=== PATIENT | male | born 1950 | race Caucasian/White ===

== ENCOUNTER → 2022-01-11 14:39 | Outpatient (CLI) | payer MEDICARE, SELFPAY ==
--- NOTE | 2022-01-11 | DI.ECHO.S_ITS ---
[place] [facility] +---------+ : : [address] : [address] : : : : [id number] : : : : Phone: [phone]---------+ Echocardiogram Report + + :Name: CONSTANTIN KAPLAN Study Date: 01/11/2022 Height: 66 in : :[facility] ReadingLocation: Weight: 300 lb : : Gender: Male BSA: 2.4 m2 : :: 1950 Age: 71 yrs BP: 155/78 mmHg: :Reason For Study: SHORTNESS OF BREATH : :Ordering Physician: OSITO, : :DONNIE Performed By: Laya Acharya : :Referring: DONNIE MCNEILL : + + Interpretation Summary 1) Normal left ventricular thickness, size, wall motion, and systolic function (EF 55-60%). 2) The right ventricle grossly appears normal in size with probable normal systolic function. 3) No significant valvular abnormalities. 4) Pulmonary artery pressures cannot be estimated because of the lack of a measurable TR jet velocity. 5) No prior Echo available for comparison. Procedure: A two-dimensional transthoracic echocardiogram with color flow and Doppler was performed. The study quality was technically difficult. A contrast injection of Definity was performed to improve assessment of LV function. There is no prior echocardiogram noted for this patient. The patient was in sinus rhythm with heart rates between 75-90 bpm during the exam. Left Ventricle: The left ventricle is normal in size and wall thickness. The ejection fraction is estimated to be 55-60%. Left ventricular systolic function appears normal without focal wall motion abnormalities. Right Ventricle: The right ventricle is not well visualized. The right ventricle grossly appears normal in size with probable normal systolic function. Atria: The left atrial size is normal. Right atrium not well visualized secondary to technical limitations. There is no Doppler evidence for an interatrial shunt. Mitral Valve: There is mild mitral annular calcification. The mitral valve is normal in structure and function. There is no mitral regurgitation noted. Aortic Valve: The aortic valve is slightly calcified. The aortic valve opens well. The aortic valve is trileaflet. There is no aortic valve stenosis. There is mild aortic regurgitation. Tricuspid Valve: The tricuspid valve is not well visualized, but is grossly normal. There is trace tricuspid regurgitation. Pulmonary artery pressures cannot be estimated because of the lack of a measurable TR jet velocity. Pulmonic Valve: The pulmonic valve leaflets are thin and pliable; valve motion is normal. There is a trace or physiologic amount of pulmonic regurgitation. Great Vessels: The aortic root is normal size. The dimensions of the ascending aorta are normal. The inferior vena cava was not well visualized. Pericardium/ Pleura There is no pericardial effusion. There is no pleural effusion. MMode/2D Measurements & Calculations LVIDd: 4.7 cm LVOT diam: 2.0 cm LVIDs: 3.0 cm Ao root diam: 3.7 cm FS: 35.2 % asc Aorta Diam: 3.7 cm IVSd: 0.86 cm Ao Arch Diam (Prox Trans): 2.4 cm LVPWd: 0.87 cm LV santos. diameter/BSA (cm/m^2): 2.0 LV sys. diameter/BSA (cm/m^2): 1.3 LA A2 area: 17.8 cm2 TAPSE: 2.1 cm LA A4 area: 21.7 cm2 LA length (vol): 6.1 cm LA vol: 53.4 ml LA vol index: 22.5 ml/m2 Doppler Measurements & Calculations Ao V2 max: 136.4 cm/sec LVOT Max Gerber: 115.0 cm/sec Ao V2 mean: 96.2 cm/sec LV V1 max P.3 mmHg Ao max P.4 mmHg LV V1 VTI: 24.9 cm Ao mean P.3 mmHg MICHEL(I,D): 2.5 cm2 Ao V2 VTI: 31.1 cm MICHEL(V,D): 2.6 cm2 sev ratio: 0.80 MICHEL indexed to BSA (cm^2/m^2): 1.0 MV E max gerber: 73.4 cm/sec PA V2 max: 110.4 cm/sec MV A max gerber: 93.9 cm/sec PA V2 mean: 74.0 cm/sec MV E/A: 0.78 PA mean P.6 mmHg Med Peak E' Gerber: 8.3 cm/sec PA pr(Accel): 17.3 mmHg E/E' med: 8.9 Lat Peak E' Gerber: 8.4 cm/sec E/E' lat: 8.7 E/e' average: 8.8 MV dec time: 0.19 sec SV(LVOT): 76.3 ml Reading Physician:[id number] PM
== END ==
PROVIDERS: PCP Family Medicine; Referring Provider Nurse Practitioner; Visit Provider Nurse Practitioner
DX: I35.1 Nonrheumatic aortic (valve) insufficiency (principal); R06.02 Shortness of breath
CPT/HCPCS: 93306